=== PATIENT | female | born 1940 | race Caucasian/White ===

== ENCOUNTER → 2017-04-29 | Outpatient (CLI) | payer OTHER ==
[~2017-04-29] MED LIST: ASPIR-TRIN325 MG PO; ASPIRIN81 MG PO; AZITHROMYCIN500 MG PO; BENAZEPRIL-HCT1 EAC1 PO; DAILY MULTIVITA1 TA1 PO; HYZAAR 100-12.51 TAB PO; LEXAPRO PO; METFORMIN PO; NIACIN500 M1 PO; ONE DAILY MULT1 EACH PO; SIMVASTATIN40 MG PO; TOPROL XL100 MG PO
--- NOTE | ~2017-04-29 | BD1 ---
[facility] A Service of [facility] & [facility] RADIOLOGY TEXT RESULTS PATIENT: RYLAN WILL LOCATION: [facility] : 44 UNIT #: [id number] AGE: [address]: Jeanne Cole MD SEX: F ORDER DR: [id number] [address] [address] [id number] MR#: [id number] Acc #: [id number] NAME: RYLAN WILL : 1940 SEX: F STUDY DATE/TIME: 04/29/2017 11:00 UNIT: SRAD ROOM: STUDY DESCRIPTION: Dexa Bone Dens 1+ Site Attending Physician: Jeanne Cole M.D. Referring Physician: Jeanne Cole M.D. Ordering Physician: Jeanne Cole M.D. Primary Care Physician: Jeanne Cole M.D. MEDICAL IMAGING REPORT This report is preliminary unless electronic signature is present. EXAM DEXA scan 04/29/2017 HISTORY Status post menopause with no hormone replacement therapy. Osteopenia. Hysterectomy. Diabetes. Smoking history. FINDINGS Bone mineral density in the lumbar spine from L1-L4 is 1.346 g/cm2 which is 1.4 standard deviations above the mean when compared to the young adult reference population which is within the range of normal. This is 2.8 standard deviations above the mean when compared to the age-matched population. Compared with 12/03/2012 there has been an increase in bone mineral density in the lumbar spine of 0.1%. Bone mineral density in the left femoral neck was 0.805 g/cm2 which is 1.7 standard deviations below the mean when compared to the young adult reference population which is characteristic of osteopenia. This is 00 standard deviations from the mean when compared to the age-matched population. Compared with 12/03/2012 there has been a decrease in bone mineral density in the left hip of 3.9%. Bone mineral density in the right femoral neck was 0.881 g/cm2 which is 1.1 standard deviations below the mean when compared to the young adult reference population which is characteristic of osteopenia. This is 0.6 standard deviations above the mean when compared to the age-matched population. Compared 12/03/2012 there has been a decrease in bone mineral density in the right hip of 2.7%. IMPRESSION Bone mineral density in the lumbar spine within the range of normal and within the hips bilaterally characteristic of osteopenia. Compared with 12/03/2012 there has been an increase in bone mineral density in the lumbar spine and a decrease in bone mineral density in the hips bilaterally. [facility] A Service of [facility] RADIOLOGY TEXT RESULTS PATIENT: RYLAN WILL LOCATION: [facility] : 44 UNIT #: [id number] AGE: [address]: Jeanne Cole MD SEX: F ORDER DR: Dictated by... John Guzman M.D. THIS IS AN ELECTRONICALLY VERIFIED REPORT John Guzman M.D. at 04/30/2017 8:12 AM Jason TD: 04/29/2017 14:18 JOB #: [id number] MEDICAL IMAGING REPORT Page 1 of 1
== END | disposition home or self-care (01) ==
LOC: SRAD 10:24
DX: M81.0 Age-related osteoporosis without current pathological fracture (principal); M85.88 Other specified disorders of bone density and structure, other site; Z78.0 Asymptomatic menopausal state
CPT/HCPCS: 77080